=== PATIENT | female | born 1975 | race Caucasian/White ===

== ENCOUNTER → 2016-12-21 | Outpatient (CLI) | payer OTHER ==
[~2016-12-21] MED LIST: BIRTH CONTROL PILL PO; HYDR-3583; LISI10TA2 PO; ONDA-42 PO; OXYC-12 PO; TMSL.4C
[2016-12-21 15:50] LABS: ANION GAP 11 MMOL/L (5-14); BLOOD UREA NITROGEN 16 MG/DL (7-18); BUN/CREATININE RATIO 17; CALCIUM 9.3 MG/DL (8.5-10.1); CARBON DIOXIDE 24 MMOL/L (21-32); CHLORIDE 104 MMOL/L (98-107); CREATININE SERUM 0.94 MG/DL (0.60-1.30); GFR ESTIMATED > 60; GLUCOSE 85 MG/DL (70-105); POTASSIUM 3.1 MMOL/L (3.6-5.0); SODIUM 139 MMOL/L (135-145); URIC ACID 7.4 MG/DL (2.6-7.2)
[2016-12-22 07:44] LABS: VITAMIN D 25-HYDROXY (TOTAL) 26 ng/mL (30-100)
== END ==
LOC: SDC 14:50
PROVIDERS: ATTEND Family Medicine
DX: M25.50 Pain in unspecified joint (principal); R53.83 Other fatigue; I10 Essential (primary) hypertension; R73.9 Hyperglycemia, unspecified; E55.9 Vitamin D deficiency, unspecified
CPT/HCPCS: 36415; 80048; 82306; 82607; 83036; 84550

== ENCOUNTER → 2017-03-14 | Outpatient (CLI) | payer OTHER ==
[2017-03-14 09:10] LABS: ANION GAP 10 MMOL/L (5-14); BLOOD UREA NITROGEN 12 MG/DL (7-18); BUN/CREATININE RATIO 13; CALCIUM 9.1 MG/DL (8.5-10.1); CARBON DIOXIDE 22 MMOL/L (21-32); CHLORIDE 109 MMOL/L (98-107); GFR ESTIMATED > 60; GLUCOSE 131 MG/DL (70-105); POTASSIUM 3.6 MMOL/L (3.6-5.0); SODIUM 141 MMOL/L (135-145); URIC ACID 6.3 MG/DL (2.6-7.2)
== END | disposition home or self-care (01) ==
LOC: LAB 08:30
PROVIDERS: ATTEND Family Medicine
DX: I10 Essential (primary) hypertension (principal); E55.9 Vitamin D deficiency, unspecified; M10.9 Gout, unspecified
CPT/HCPCS: 36415; 80048; 82306; 84550

== ENCOUNTER → 2017-07-14 | Outpatient (CLI) | payer OTHER ==
[2017-07-14 15:28] LABS: ANION GAP 9 MMOL/L (5-14); BLOOD UREA NITROGEN 15 MG/DL (7-18); BUN/CREATININE RATIO 16; CALCIUM 9.7 MG/DL (8.5-10.1); CARBON DIOXIDE 27 MMOL/L (21-32); CHLORIDE 103 MMOL/L (98-107); CREATININE SERUM 0.94 MG/DL (0.60-1.30); GFR ESTIMATED > 60; GLUCOSE 116 MG/DL (70-105); POTASSIUM 2.8 MMOL/L (3.6-5.0); SODIUM 139 MMOL/L (135-145); URIC ACID 3.7 MG/DL (2.6-7.2)
== END ==
LOC: LAB 14:33
PROVIDERS: ATTEND Family Medicine
DX: I10 Essential (primary) hypertension (principal); E55.9 Vitamin D deficiency, unspecified; E79.0 Hyperuricemia without signs of inflammatory arthritis and tophaceous disease
CPT/HCPCS: 36415; 80048; 82306; 84550

== ENCOUNTER → 2017-08-29 | Outpatient (CLI) | payer OTHER ==
[2017-08-29 09:21] LABS: ANION GAP 8 MMOL/L (5-14); BLOOD UREA NITROGEN 6 MG/DL (7-18); BUN/CREATININE RATIO 8; CALCIUM 8.8 MG/DL (8.5-10.1); CARBON DIOXIDE 25 MMOL/L (21-32); CHLORIDE 106 MMOL/L (98-107); CREATININE SERUM 0.71 MG/DL (0.60-1.30); GFR ESTIMATED > 60; GLUCOSE 101 MG/DL (70-105); SODIUM 139 MMOL/L (135-145)
== END ==
LOC: LAB 08:30
PROVIDERS: ATTEND Family Medicine
DX: E87.6 Hypokalemia (principal)
CPT/HCPCS: 36415; 80048

== ENCOUNTER 2017-09-01 09:56 | Outpatient (CLI) | payer OTHER ==
[~2017-09-01] VITALS: Ht 154.9 cm; Wt 77.6 kg
[2017-09-01] MEDS ORDERED: CETI10TA20 PO (10:53)
[2017-09-01] MEDS ORDERED: LISI-552 PO (10:53)
[2017-09-01] MEDS ORDERED: MULT-351 PO (10:53)
[2017-09-01] MEDS ORDERED: CHOL500061 PO (10:53)
[2017-09-01] MEDS ORDERED: NEBI20TA2 PO (10:53)
[2017-09-01] MEDS ORDERED: ALLO100T PO (10:53)
[2017-09-01] MEDS ORDERED: POTA-51 PO (10:53)
== END 2017-09-01 10:55 ==
LOC: PREOP 09:56
PROVIDERS: ATTEND Surgery
DX: Z01.818 Encounter for other preprocedural examination (principal); R19.7 Diarrhea, unspecified; E87.6 Hypokalemia

== ENCOUNTER 2017-09-02 11:30 | Day surgery (SDC) | payer OTHER ==
[~2017-09-02] VITALS: Ht 154.9 cm; Wt 77.6 kg
[~2017-09-02 11:30] MED LIST changes: +ALLO100T PO; +CETI10TA20 PO; +CHOL500061 PO; +LISI-552 PO; +MULT-351 PO; +NEBI20TA2 PO; +POTA-51 PO
[2017-09-02 11:35] VITALS: BP 142/90
[2017-09-02] MEDS ORDERED: NS IV 500 ML 500 ML ONE (11:38)
[2017-09-02] MEDS ORDERED: NS IV 500 ML 500 ML IV PRN (11:45)
[2017-09-02] MEDS ORDERED: LIDOCAINE JELLY 2% (XYLOCAINE) 5 ML TUBE MM PRN (11:45)
--- NOTE | 2017-09-02 12:08 | Conscious Sedation/ASA ---
Conscious Sedation Pre-Proced Time Reviewed: 12:00 ASA Class: 2 Airway Mallampati Classification: ([place] appropriate class) I. II. III, IV Lungs Heart ASA score ASA 1: a normal healthy patient ASA 2: a patient with a mild systemic disease (mid diabetes, controlled hypertension, obesity ASA 3: a patient with a severe systemic disease that limits activity (angina , COPD, prior Myocardial infarction) ASA 4: a patient with an incapacitating disease that is a constant threat to life (CHF, renal failure) ASA 5: a moribund patient not expected to survive 24 hrs. (ruptured aneurysm) ASA 6: a declared brain patient whose organs are being harvested. For emergent operations, add the letter E after the classification Grade 2 Sedation Plan: Analgesia, Amnesia, Plan communicated to team members, Discussed options with patient/fam, Discussed risks with patient/fam Note The patient is an appropriate candidate to undergo the planned procedure, sedation, and anesthesia. The patient immediately re-assessed prior to indication. ROBERT MARSHALL MD Sep 02, 2017 12:08 pm
--- NOTE | 2017-09-02 12:09 | Progress Note-Pre Operative ---
Pre-Operative Progress Note H&P Reviewed The H&P was reviewed, patient examined and no changes noted. Date Seen by Provider: Sep 02, 2017 Time Seen by Provider: 12:00 Date H&P Reviewed: Sep 02, 2017 Time H&P Reviewed: 12:00 Pre-Operative Diagnosis: diarrhea, hypokalemia ROBERT MARSHALL MD Sep 02, 2017 12:09 pm
[2017-09-02] MEDS ORDERED: ACETAMINOPHEN 325 MG TABLET/CAPLET (TYLENOL) PO PRN (12:15)
[2017-09-02] MEDS ORDERED: ONDANSETRON 4 MG/2 ML (SDV) Z0FRAN IV PRN (12:15)
[2017-09-02] MEDS ORDERED: morphine INJ 10 MG/ML 1ML (SYR OR VIAL) IV PRN (12:15)
[2017-09-02] MEDS ORDERED: HYDROcodone/APAP 5 MG/325 MG (LORTAB) TAB PO PRN (12:15)
[2017-09-02] MEDS: fentaNYL INJECTION 100 MCG/2 ML AMP IVP PRN ×4 (12:42→13:05)
[2017-09-02] MEDS ORDERED: MIDAZOLAM 2 MG/2 ML (VERSED) VIAL ONE ×4 (12:42→12:43)
[2017-09-02] MEDS ORDERED: fentaNYL INJECTION 100 MCG/2 ML AMP ONE ×2 (12:43→12:51)
[2017-09-02] MEDS: MIDAZOLAM 2 MG/2 ML (VERSED) VIAL IVP PRN ×4 (12:43→12:56)
[2017-09-02] MEDS ORDERED: LIDOCAINE JELLY 2% (XYLOCAINE) 5 ML TUBE ONE (12:51)
--- NOTE | 2017-09-02 13:20 | Progress Note-Post Operative ---
Post-Operative Progess Note Surgeon (s)/Java Web Application Developer (s) Surgeon ROBERT MARSHALL MD Java Web Application Developer: none Pre-Operative Diagnosis diarrhea, hypokalemia Post-Operative Diagnosis chronic stage 2 ext and int hemorrhoids. Procedure & Operative Findings Date of Procedure 09/02/17 Procedure Performed/Findings EGD with bx. Anesthesia Type CS Estimated Blood Loss Estimated blood loss (mL): minimal Specimens/Packing Specimens Removed cecum, asc, desc, rectum. ROBERT MARSHALL MD Sep 02, 2017 1:19 pm
--- NOTE | 2017-09-02 13:22 | Discharge Inst-Surgical ---
D/C Lap Instructions-ROLANDO Follow Up PRN Activity as tolerated High Fiber Diet 25g or more per day Avoid Alcohol, Caffeine, Spicy [place] and Acid foods. Drink 64 fluid oz or more of fluids per day. Symptoms to Report: Fever over 101 degree F, Nausea/Vomiting If any problems/questions: Contact your physician or go to Emergency Room ROBRET MARSHALL MD Sep 02, 2017 1:21 pm
[2017-09-02 13:25] VITALS: BP 123/87
[2017-09-02 13:50] VITALS: BP 138/98
[2017-09-02 14:36] VITALS: BP 138/98
--- NOTE | 2017-09-02 15:18 | OPERATIVE REPORT ---
DATE OF SERVICE: 09/02/2017 ATTENDING PRIMARY CARE PHYSICIAN: Dr. Bianca Maldonado. PREOPERATIVE DIAGNOSES: Diarrhea, hypokalemia. POSTOPERATIVE DIAGNOSES: Chronic stage II external and internal hemorrhoids. Remainder of the rectum and colon were normal. There were no mucosal inflammatory changes to indicate any active colitis as well as no polyps or any neoplasms. PROCEDURE: Colonoscopy with biopsy. SURGEON: Dr. Marshall. ANESTHESIA: Conscious sedation. ESTIMATED BLOOD LOSS: Minimal. FINDINGS: Chronic stage II external and internal hemorrhoids. The remainder of the rectum and colon were normal. There were no mucosal inflammatory changes to indicate any active colitis. There were no polyps or any neoplasms to indicate any excessive fluid loss. DISPOSITION: The patient tolerated the procedure well. INDICATIONS: The patient is a 41-year-old female who we have seen before in the past. She has had intermittent episodes of pain and drainage in the perianal regions after bowel movements and we treated this conservatively with a high fiber diet, which did correct on its own over time. She has had any issue with hypokalemia and symptomatic leg cramping. Upon further questioning, she reports that she does have multiple loose bowel movements; however, recently this has worsened. She cannot identify a specific reason; however, states that this may occur after eating specific foods or after eating food in general. She does not report any red blood per rectum nor any dark tarry stools. She does not report having any previous signs or symptoms of colitis. DESCRIPTION OF PROCEDURE: The patient was brought to the endoscopy suite, laid in the left lateral decubitus position. After adequate IV pain and sedative medications and conscious sedation anesthesia, a digital rectal examination was performed. Chronic stage II external and internal hemorrhoids were identified, which were not actively adenomatous nor inflamed and no bleeding. Normal sphincter tone was felt and there were no palpable masses. The endoscope was then intubated to the anus and rectum gently insufflated. The endoscope was then advanced to the valves of [place] of the rectum with no polyps or any neoplasms identified. We then proceeded through the sigmoid colon where no diverticulosis identified. The endoscope was then advanced through the remainder of the descending, transverse and ascending colon to the cecum. All these segments were normal. There were no mucosal inflammatory changes to indicate any colitis. There were also no polyps nor any neoplasms identified. Biopsy was taken of the cecum, ascending colon, descending colon and rectum with forceps with visualization of good hemostasis. The patient tolerated the procedure well. We will recommend continued medical management with recommended lifestyle and diet accommodation including small and more frequent meals, avoidance of eating at night as well as head elevation while laying supine. She also needs to avoid caffeinated beverages, spicy, greasy and acidic foods. We will also recommend continued high fiber with at least 25 to 30 grams of fiber per day as well as copious amounts of water to promote soft stools on a daily basis, which did not have much form; however, is not a liquid diarrhea. If she has continued episodes of diarrhea, this may indicate an upper GI source, potentially an acid hypersecretion versus a gallbladder etiology and we will proceed with further investigation. Job ID: [id number] DocumentID: [id number] Dictated Date: 09/02/2017 13:21:00 Drafter (Cad) Electrical Date: 09/02/2017 15:17:50 Dictated By: ROBERT MARSHALL MD MTDD
== END 2017-09-02 14:00 | disposition home or self-care (01) ==
LOC: ENDO 11:30
PROVIDERS: ATTEND Surgery
DX: K64.1 Second degree hemorrhoids (principal); E87.6 Hypokalemia; I10 Essential (primary) hypertension; Z87.442 Personal history of urinary calculi; Z79.899 Other long term (current) drug therapy
CPT/HCPCS: 84703

== ENCOUNTER → 2017-11-03 | Outpatient (CLI) | payer OTHER ==
--- NOTE | 2017-11-03 17:56 | Diagnostic Imaging Report ---
INDICATION: Abnormal uterine bleeding with heavy menses and clot. FINDINGS: The uterus measures 9.6 x 5.2 x 3.8 cm. IUD is in place in the uterine cavity. Endometrial stripe is not thickened measuring 4 mm. No myometrial or endometrial masses are demonstrated. The right ovary is not demonstrated on this exam. The left ovary measures 2.5 x 2.2 x 1.8 cm. There is a simple cyst measuring 1.6 cm present. There is normal blood flow in the left ovary. There is no free fluid noted. IMPRESSION: 1. IUD in the uterine cavity with no myometrial masses. 2. Simple appearing cyst in the left ovary measuring 1.6 cm. 3. Right ovary is not demonstrated. Dictated by: Dictated on workstation # [id number]
== END ==
LOC: RAD 15:05
PROVIDERS: ATTEND Obstetrics & Gynecology
DX: N93.8 Other specified abnormal uterine and vaginal bleeding (principal); N83.202 Unspecified ovarian cyst, left side; Z97.5 Presence of (intrauterine) contraceptive device
CPT/HCPCS: 76830; 76856

== ENCOUNTER 2017-11-09 13:32 | Outpatient (CLI) | payer OTHER ==
[~2017-11-09] VITALS: Ht 154.9 cm; Wt 77.6 kg
[2017-11-09 15:32] LABS: BASOPHILS % (AUTO) 1 % (0-10); EOSINOPHILS # (AUTO) 0.2 10^3/uL (0.0-0.3); EOSINOPHILS % (AUTO) 2 % (0-10); HEMATOCRIT 43 % (35-52); HEMOGLOBIN 15.2 G/DL (11.5-16.0); LYMPHOCYTES % (AUTO) 35 % (12-44); MEAN CORPUSCULAR HEMOGLOBIN 31 PG (25-34); MEAN CORPUSCULAR HGB CONC 35 G/DL (32-36); MEAN CORPUSCULAR VOLUME 88 FL (80-99); MEAN PLATELET VOLUME 10.9 FL (7.4-10.4); MONOCYTES # (AUTO) 0.5 X 10^3 (0.0-1.0); MONOCYTES % (AUTO) 6 % (0-12); NEUTROPHILS % (AUTO) 57 % (42-75); PLATELET COUNT 249 10^3/uL (130-400); RED CELL DISTRIBUTION WIDTH 13.1 % (10.0-14.5); WHITE BLOOD COUNT 8.8 10^3/uL (4.3-11.0)
[2017-11-09 15:50] LABS: BUN/CREATININE RATIO 14; CALCIUM 9.7 MG/DL (8.5-10.1); CARBON DIOXIDE 22 MMOL/L (21-32); CHLORIDE 106 MMOL/L (98-107); CREATININE SERUM 0.91 MG/DL (0.60-1.30); GFR ESTIMATED > 60; GLUCOSE 91 MG/DL (70-105); POTASSIUM 3.5 MMOL/L (3.6-5.0); SODIUM 139 MMOL/L (135-145)
[2017-11-10] MEDS ORDERED: DOCU100C37 PO (07:20)
[2017-11-10] MEDS ORDERED: HYDR-34 PO (07:20)
[2017-11-10] MEDS ORDERED: SIME80TA16 PO (07:20)
[2017-11-10] MEDS ORDERED: IBUP-1773 PO (07:20)
[2017-11-10] MEDS ORDERED: ONDA4TAB8 PO (07:20)
== END 2017-11-09 15:58 | disposition home or self-care (01) ==
LOC: PREOP 13:32
PROVIDERS: ATTEND Obstetrics & Gynecology
DX: Z01.812 Encounter for preprocedural laboratory examination (principal); Z11.2 Encounter for screening for other bacterial diseases; N93.9 Abnormal uterine and vaginal bleeding, unspecified; N94.6 Dysmenorrhea, unspecified
CPT/HCPCS: 36415; 80048; 84703; 85025; 86850; 86900; 86901; 87081

== ENCOUNTER → 2019-07-05 | Outpatient (CLI) | payer OTHER ==
[~2019-07-05] MED LIST changes: +DOCU100C37 PO; +HYDR-34 PO; +IBUP-1773 PO; +ONDA4TAB8 PO; +SIME80TA16 PO
[2019-07-05 08:24] LABS: BASOPHILS % (AUTO) 1 % (0-10); EOSINOPHILS # (AUTO) 0.1 10^3/uL (0.0-0.3); EOSINOPHILS % (AUTO) 2 % (0-10); HEMATOCRIT 40 % (35-52); LYMPHOCYTES # (AUTO) 2.4 X 10^3 (1.0-4.0); LYMPHOCYTES % (AUTO) 32 % (12-44); MEAN CORPUSCULAR HEMOGLOBIN 31 PG (25-34); MEAN CORPUSCULAR HGB CONC 35 G/DL (32-36); MEAN CORPUSCULAR VOLUME 88 FL (80-99); MONOCYTES # (AUTO) 0.6 X 10^3 (0.0-1.0); MONOCYTES % (AUTO) 8 % (0-12); NEUTROPHILS # (AUTO) 4.3 X 10^3 (1.8-7.8); NEUTROPHILS % (AUTO) 58 % (42-75); PLATELET COUNT 225 10^3/uL (130-400); RED CELL DISTRIBUTION WIDTH 12.4 % (10.0-14.5); WHITE BLOOD COUNT 7.4 10^3/uL (4.3-11.0)
[2019-07-05 08:50] LABS: ALBUMIN 4.4 GM/DL (3.2-4.5); BILIRUBIN,TOTAL 0.5 MG/DL (0.1-1.0); CALCIUM 8.9 MG/DL (8.5-10.1); POTASSIUM 3.5 MMOL/L (3.6-5.0); TOTAL PROTEIN 6.6 GM/DL (6.4-8.2); URIC ACID 5.3 MG/DL (2.6-7.2)
== END ==
LOC: LAB 08:06
PROVIDERS: ATTEND Nurse Practitioner Family
DX: E87.6 Hypokalemia (principal); M10.9 Gout, unspecified; R73.9 Hyperglycemia, unspecified
CPT/HCPCS: 36415; 80053; 84443; 84550; 85025

== ENCOUNTER → 2019-07-19 | Outpatient (CLI) | payer OTHER ==
[2019-07-19 10:59] LABS: BUN/CREATININE RATIO 10; CALCIUM 8.8 MG/DL (8.5-10.1); CARBON DIOXIDE 26 MMOL/L (21-32); CHLORIDE 108 MMOL/L (98-107); CREATININE SERUM 0.94 MG/DL (0.60-1.30); GFR ESTIMATED > 60; GLUCOSE 93 MG/DL (70-105); POTASSIUM 4.2 MMOL/L (3.6-5.0); SODIUM 141 MMOL/L (135-145)
== END ==
LOC: LAB 10:21
PROVIDERS: ATTEND Family Medicine
DX: Z01.89 Encounter for other specified special examinations (principal)
CPT/HCPCS: 36415; 80048

== ENCOUNTER → 2019-12-11 | Outpatient (CLI) | payer OTHER ==
[~2019-12-11] MED LIST changes: -CETI10TA20 PO; +CETI10TA21 PO
--- NOTE | 2019-12-11 12:59 | Diagnostic Imaging Report ---
INDICATION: Routine screening. Comparison is made with prior mammogram from 05/22/2018 and 03/25/2015. 2-D and 3-D bilateral screening mammography was performed with a Computer Aided Detection (CAD) system. 3-D tomosynthesis was also performed and reviewed. FINDINGS: Both breasts remain heterogeneously dense, limiting the sensitivity of mammography. There are benign calcifications. The parenchymal pattern is stable. No mass or malignant appearing microcalcifications are seen. Axillae are unremarkable. IMPRESSION: No mammographic features suspicious for malignancy are identified. ACR BI-RADS Category 2: Benign findings. Result letter will be mailed to the patient. Note: At least 10% of breast cancer is not imaged by mammography. Dictated by: Dictated on workstation # [id number]
== END ==
LOC: RAD 08:32
PROVIDERS: ATTEND Family Medicine
DX: Z12.31 Encounter for screening mammogram for malignant neoplasm of breast (principal)
CPT/HCPCS: 77067

== ENCOUNTER → 2020-06-03 | Outpatient (CLI) | payer OTHER ==
[2020-06-03 09:05] LABS: BASOPHILS % (AUTO) 1 % (0-10); EOSINOPHILS # (AUTO) 0.5 10^3/uL (0.0-0.3); EOSINOPHILS % (AUTO) 9 % (0-10); HEMATOCRIT 37 % (35-52); HEMOGLOBIN 12.4 G/DL (11.5-16.0); LYMPHOCYTES # (AUTO) 1.8 X 10^3 (1.0-4.0); LYMPHOCYTES % (AUTO) 29 % (12-44); MEAN CORPUSCULAR HEMOGLOBIN 31 PG (25-34); MEAN CORPUSCULAR HGB CONC 34 G/DL (32-36); MEAN CORPUSCULAR VOLUME 92 FL (80-99); MEAN PLATELET VOLUME 10.9 FL (7.4-10.4); MONOCYTES # (AUTO) 0.4 X 10^3 (0.0-1.0); MONOCYTES % (AUTO) 7 % (0-12); NEUTROPHILS # (AUTO) 3.4 X 10^3 (1.8-7.8); NEUTROPHILS % (AUTO) 55 % (42-75); PLATELET COUNT 203 10^3/uL (130-400); RED CELL DISTRIBUTION WIDTH 12.2 % (10.0-14.5); WHITE BLOOD COUNT 6.2 10^3/uL (4.3-11.0)
[2020-06-03 09:32] LABS: ALANINE AMINOTRANSFERASE 17 U/L (0-55); ALBUMIN 4.1 GM/DL (3.2-4.5); ALKALINE PHOSPHATASE 64 U/L (40-136); BILIRUBIN,TOTAL 0.4 MG/DL (0.1-1.0); BUN/CREATININE RATIO 18; CALCIUM 9.1 MG/DL (8.5-10.1); CARBON DIOXIDE 24 MMOL/L (21-32); CHLORIDE 106 MMOL/L (98-107); CHOLESTEROL 151 MG/DL (< 200); GFR ESTIMATED > 60; GLUCOSE 92 MG/DL (70-105); HDL CHOLESTEROL 67 MG/DL (40-60); POTASSIUM 3.4 MMOL/L (3.6-5.0); SODIUM 138 MMOL/L (135-145); TOTAL PROTEIN 6.3 GM/DL (6.4-8.2); TRIGLYCERIDES 99 MG/DL (<150); VLDL CHOLESTEROL 20 MG/DL (5-40)
[2020-06-03 09:53] LABS: FREE T4 (FREE THYROXINE) 0.96 NG/DL (0.70-1.48)
== END ==
LOC: SDC 08:42
PROVIDERS: ATTEND Family Medicine
DX: Z00.01 Encounter for general adult medical examination with abnormal findings (principal); I10 Essential (primary) hypertension; M10.9 Gout, unspecified
CPT/HCPCS: 36415; 80053; 80061; 84439; 84443; 84550; 85025

== ENCOUNTER → 2020-07-28 | Outpatient (CLI) | payer OTHER ==
[~2020-07-28] MED LIST changes: -CETI10TA21 PO; +CETI10TA49 PO
--- NOTE | 2020-07-28 10:43 | Diagnostic Imaging Report ---
PROCEDURE: US Gallbladder. TECHNIQUE: Multiple real-time grayscale images were obtained over the right upper quadrant in various projections. INDICATION: Abdominal pain and diarrhea. The liver is normal in size at 17.2 cm. No discrete liver mass is identified. The portal vein is patent and shows normal direction of flow. Gallbladder is without stones or sludge. No wall thickening or biliary ductal dilatation is seen. Pancreas unremarkable. Aorta is nonaneurysmal. IVC is patent. The right kidney is without calculi or hydronephrosis. There is no ascites. IMPRESSION: Unremarkable gallbladder ultrasound. Dictated by: Dictated on workstation # [id number]
== END ==
LOC: RAD 09:11
PROVIDERS: ATTEND Family Medicine
DX: R19.7 Diarrhea, unspecified (principal); R10.9 Unspecified abdominal pain
CPT/HCPCS: 76705

== ENCOUNTER → 2020-08-11 | Outpatient (CLI) | payer OTHER ==
[~2020-08-11] MED LIST changes: +CATHETER FLUSH 10 ML SYR IV PRN
--- NOTE | 2020-08-11 12:40 | Diagnostic Imaging Report ---
INDICATION: Abdominal pain and diarrhea. TECHNIQUE: The patient was administered 5.4 mCi of technetium 99m Choletec intravenously and imaging over the abdomen was performed. At 1 hour, the patient ingested 8 ounces of Ensure and a gallbladder ejection fraction was calculated. The patient denied discomfort during the study. FINDINGS: There is homogeneous uptake of activity by the liver with prompt excretion of activity into the common duct and gallbladder. Normal passage of activity into the small bowel is noted. The gallbladder ejection fraction is normal at 42%. IMPRESSION: Normal HIDA scan and gallbladder ejection fraction. Dictated by: Dictated on workstation # [id number]
== END ==
LOC: CARD 09:48
PROVIDERS: ATTEND Nurse Practitioner Family
DX: R10.9 Unspecified abdominal pain (principal); R19.7 Diarrhea, unspecified
CPT/HCPCS: 78227; A9537